=== PATIENT | female | born 1970 | race Caucasian/White ===

== ENCOUNTER → 2017-01-21 | Outpatient (CLI) | payer BC ==
--- NOTE | 2017-01-22 15:28 | MAMMOGRAPHY REPORT ---
BILATERAL DIGITAL SCREENING MAMMOGRAM TOMOSYNTHESIS WITH CAD: 01/21/2017 CLINICAL HISTORY: Routine screening. Patient has no complaints. TECHNIQUE: Breast tomosynthesis in addition to standard 2D mammography was performed. Current study was also evaluated with a Computer Aided Detection (CAD) system. COMPARISON: Comparison is made to exams dated: 02/03/2016 ultrasound, 01/19/2016 mammogram, 01/17/2015 mammogram, 01/15/2014 mammogram, 01/14/2013 mammogram, and 01/14/2012 mammogram - [facility]. BREAST COMPOSITION: There are scattered areas of fibroglandular density in both breasts. FINDINGS: There are multiple bilateral circumscribed masses scattered throughout the breasts. The previously observed mass in the upper outer quadrant of the right breast has decreased in size jose red to the prior exam. This was previously documented to represent a simple cyst on ultrasound. Ov erall these findings are most compatible with fluctuating cysts and benign fibrocystic changes. No suspicious spiculated or irregular mass, focal area of architectural distortion or suspicious calcif ications are seen. IMPRESSION: ACR BI-RADS CATEGORY 1: NEGATIVE There is no mammographic evidence of malignancy. A 1 year screening mammogram is recommended. The p atient will receive written notification of the results. Approximately 10% of breast cancers are not detected with mammography. A negative mammographic repor t should not delay biopsy if a clinically suggestive mass is present. Erika Dueñas M.D. ay/:01/21/2017 21:28:31 Certified Composites Technician: Mali Mak, [facility] letter sent: Normal 1/2 BI-RADS Code: ACR BI-RADS Category 1: Negative
== END | disposition home or self-care (01) ==
LOC: C.MAMM 13:43
PROVIDERS: ATTEND Obstetrics & Gynecology
DX: Z12.31 Encounter for screening mammogram for malignant neoplasm of breast (principal)

== ENCOUNTER → 2017-08-08 | Outpatient (CLI) | payer BC ==
--- NOTE | 2017-08-08 10:34 | DIAGNOSTIC IMAGING REPORT ---
L FINGER(S) MIN 2 VIEWS CLINICAL HISTORY: LEFT THUMB INJURY trauma. Pain. COMPARISON: None. DISCUSSION: The bones and joint spaces appear intact. There is no evidence of fracture, dislocation or bony disease. There is no evidence for soft tissue swelling. IMPRESSION: Negative study. The above report was generated using voice recognition software. It may contain grammatical, syntax or spelling errors. Electronically signed by: Jayme Dyer M.D. 08/08/2017 10:32 AM Dictated Date/Time: 08/08/2017 10:32 AM
== END | disposition home or self-care (01) ==
LOC: C.RDSM 11:51
PROVIDERS: ATTEND Family Medicine
DX: S69.92XA Unspecified injury of left wrist, hand and finger(s), initial encounter (principal); X58.XXXA Exposure to other specified factors, initial encounter

== ENCOUNTER → 2018-01-23 | Outpatient (CLI) | payer BC ==
--- NOTE | 2018-01-27 07:48 | MAMMOGRAPHY REPORT ---
BILATERAL DIGITAL SCREENING MAMMOGRAM TOMOSYNTHESIS WITH CAD: 01/23/2018 CLINICAL HISTORY: Routine screening. Patient has no complaints. TECHNIQUE: Breast tomosynthesis in addition to standard 2D mammography was performed. Current study was also evaluated with a Computer Aided Detection (CAD) system. COMPARISON: Comparison is made to exams dated: 01/21/2017 mammogram, 02/03/2016 ultrasound, 01/19/2016 m ammogram, 01/17/2015 mammogram, 01/15/2014 mammogram, and 01/14/2013 mammogram - [facility]. BREAST COMPOSITION: There are scattered areas of fibroglandular density in both breasts. FINDINGS: There is a partially circumscribed and partially obscured 11 mm mass seen within the right upper outer quadrant posteriorly, which may represent a cyst although targeted ultrasound is recommen ded for further evaluation. The remainder of both breasts are not significantly changed, without suspicious masses, calcification s, or areas of architectural distortion noted. A few small circumscribed bilateral benign-appearing masses are again noted, with cysts seen on prior ultrasound exams. IMPRESSION: ACR BI-RADS CATEGORY 0: INCOMPLETE EVALUATION: NEED ADDITIONAL IMAGING EVALUATION Right breast mass, for which additional imaging evaluation is recommended. The patient will be french d to schedule an appointment. Approximately 10% of breast cancers are not detected with mammography. A negative mammographic report should not delay biopsy if a clinically suggestive mass is present. Tabitha Navarrete M.D. /:01/23/2018 16:30:13 Teacher Industrial Arts: Kyle Pate M, [facility] letter sent: Addl Imaging 0 BI-RADS Code: ACR BI-RADS Category 0: Incomplete Evaluation: Need Additional Imaging Evaluation
== END | disposition home or self-care (01) ==
LOC: C.MAMM 08:30
PROVIDERS: ATTEND Obstetrics & Gynecology
DX: Z12.31 Encounter for screening mammogram for malignant neoplasm of breast (principal); N63.10 Unspecified lump in the right breast, unspecified quadrant

== ENCOUNTER → 2018-02-05 | Outpatient (CLI) | payer BC ==
--- NOTE | 2018-02-05 15:07 | MAMMOGRAPHY REPORT ---
ULTRASOUND OF BOTH BREASTS: 02/05/2018 CLINICAL HISTORY: 47-year-old woman called back from screening mammography for a partially circumscri bed and obscured 11 mm mass in the right upper outer quadrant posteriorly. During this diagnostic ev aluation, the patient also reported a single episode of greenish nipple discharge with squeezing. COMPARISON: Comparison is made to exams dated: 01/23/2018 mammogram, 01/21/2017 mammogram, 02/03/2016 ul trasound, 01/19/2016 mammogram, 01/17/2015 mammogram, and 01/15/2014 mammogram - [facility]. FINDINGS: Targeted ultrasound was performed in the 8:00 to 10:00 axes of the right breast in the area of partially circumscribed and obscured 11 mm breast mass seen mammographically. In the 9:00 axis, 10 cm from the nipple, there is a morphologically normal intramammary lymph node measuring approximat ibeth 7 mm. In the 9:00 axis, 7 cm from the nipple, there is an oval circumscribed parallel anechoic b enign cyst with posterior acoustic enhancement, measuring 9.0 x 6.0 x 7.7 mm. This is thought to cor relate with the mammographic mass and differences in size are likely technical due to measuring techn ique. No further workup is needed at this time. Additional sonographic evaluation was performed in the periareolar and retroareolar right breast to a ssess for the greenish nipple discharge and there is no evidence of focal duct ectasia. No intraduct al mass is seen. Overall, no suspicious solid or cystic mass identified. IMPRESSION: ACR BI-RADS CATEGORY 2: BENIGN 1. The partially circumscribed and obscured mammographic mass in the 9:00 posterior right breast cor responds to a benign anechoic simple cyst on ultrasound. No further workup is needed at this time. 2. The patient reported a single episode of greenish nipple discharge from the right breast after sq ueezing. No sonographic abnormality, intraductal mass or suspicious finding is seen on targeted ultr asound in the periareolar breast. Continued clinical monitoring is recommended and if this should oc cur spontaneously, additional workup with a breast MRI and/or surgical consultation may be needed. Erika Dueñas M.D. ay/:02/05/2018 13:40:10 Americanization Teacher: Dr. Erika Dueñas, [facility] letter sent: Normal /2 BI-RADS Code: ACR BI-RADS Category 2: Benign
== END | disposition home or self-care (01) ==
LOC: C.MAMM 12:49
PROVIDERS: ATTEND Family Medicine
DX: N63.10 Unspecified lump in the right breast, unspecified quadrant (principal); N64.52 Nipple discharge

== ENCOUNTER 2022-10-19 05:34 | Observation (INO) ==
--- NOTE | 2022-10-15 09:30 | Anesthesiology Consultation ---
Date of Service October 15, 2022 Assessment & Plan (1) Encounter for pre-operative examination: - COVID screening: Per assessment on 10/09: No known COVID-19 positive contacts or current COVID-19 related symptoms. Travel screen negative. Patient vaccinated. At surgeon discretion if preop Covid testing being done. - Check test AM DOS Chart Review Chart Review: Acceptable Risk for Surgery and Patient NOT seen in Pre Admission Testing History Surgery Operation Date: 10/19/22 08:20 Proposed Procedures p Total Laparoscopic Hysterectomy, Bilateral Salpingectomy and Cystoscopy, Possible Laparotomy - Jesse Lester MD Height/Weight Height: 5 ft 4 in Weight: 90.718 kg Allergies Allergy/AdvReac Type Severity Reaction Status Date / Time No Known Allergies Allergy Unknown Verified 10/09/22 11:31 Medications Home Medications Medication Instructions Recorded Confirmed Last Taken bupropion HCl 150 mg 24 hr tablet, 150 mg PO QAM 06/06/21 10/09/22 Unknown extended release escitalopram oxalate 20 mg tablet 20 mg PO QAM 06/06/21 10/09/22 Unknown levothyroxine 75 mcg tablet 75 mcg PO QAM 06/06/21 10/09/22 Unknown Past Medical History Medical History Abnormal uterine bleeding (AUB) Anxiety and depression History of DVT (deep vein thrombosis) LLE (1+ years ago), possibly r/t OCP, treated with AC Hypothyroidism Scoliosis Sleep apnea CPAP Past Family History Family History Other No family history of adverse response to anesthesia Past Surgical History Surgical History History of adenoidectomy History of arthroscopy of left knee History of x 2 History of colonoscopy History of D&C History of tonsillectomy History of wisdom tooth extraction Social History Smoking Status: Never smoker Do You Dip or Chew Tobacco: No Hx Alcohol Use: Yes alcohol intake frequency: other Alcohol Intake Frequency Comment: once per month Hx Substance Use: No substance use type: does not use Testing Laboratory Results 10/11/22 WBC 138 H/H 38.5 PLATELETS 100 SODIUM 138 POTASSIUM 4.8 CHLORIDE 104 CO2 26.0 BUN 13 CREATININE 0.8 GLUCOSE 100 TSH 1.88
[2022-10-19] MEDS ORDERED: ceFAZolin 2000MG 2,000 MG/15 ML SYR IV SCH (06:00)
[2022-10-19] MEDS ORDERED: LR 15ML/HR IV SCH (06:00)
[2022-10-19] MEDS ORDERED: LACTATED RINGER'S 1,000 ML IV SCH (06:00)
[2022-10-19 06:22] LABS: Pregnancy Test, Serum Negative (Negative)
[2022-10-19] MEDS ORDERED: diphenhydrAMINE 50 MG/ML VIAL ONE (06:50)
[2022-10-19] MEDS ORDERED: NEOSTIGMINE METHYLSULFATE 1 MG/ML 10ML VIAL ONE (06:50)
[2022-10-19] MEDS ORDERED: DEXAMETHASONE SOD INJ 4 MG/ML VIAL ONE (06:50)
[2022-10-19] MEDS ORDERED: fentaNYL citrate 100 MCG/2 ML VIAL ONE (06:50)
[2022-10-19] MEDS ORDERED: PROPOFOL IV EMULSION 10 MG/ML 20 ML VIAL IV ONE (06:50)
[2022-10-19] MEDS ORDERED: GLYCOPYRROLATE 0.2 MG/ML VIAL ONE (06:50)
[2022-10-19] MEDS ORDERED: ROCURONIUM BROMIDE 10 MG/ML 5 ML VIAL IV ONE ×2 (06:50→08:24)
[2022-10-19] MEDS ORDERED: LIDOCAINE 2% MPF LOCAL 5 ML VIAL INFIL ONE (06:50)
[2022-10-19] MEDS ORDERED: MIDAZOLAM HCL 1 MG/ML 2ML VIAL ONE (06:50)
[2022-10-19] MEDS ORDERED: ONDANSETRON INJ 2 MG/ML 2 ML VIAL ONE (06:50)
[2022-10-19] MEDS ORDERED: METHYLENE BLUE 0.5% 10 ML VIAL ONE (06:52)
[2022-10-19] MEDS ORDERED: fentaNYL citrate 100 MCG/2 ML VIAL IV PRN (06:52)
[2022-10-19] MEDS ORDERED: ONDANSETRON INJ 2 MG/ML 2 ML VIAL IV PRN ×2 (06:52→10:36)
[2022-10-19] MEDS ORDERED: ATROPINE SULFATE 0.1 MG/ML 10ML SYR IV PRN (06:52)
[2022-10-19] MEDS ORDERED: HYDROmorphone INJ 1 MG/ML SYRINGE IV PRN (06:52)
[2022-10-19] MEDS ORDERED: ePHEDrine sulfate 50 MG/ML AMP IV PRN (06:52)
[2022-10-19] MEDS ORDERED: PROMETHAZINE HCL 6.25 MG in SODIUM CHLORIDE 0.9% 50 ML IV PRN (06:52)
[2022-10-19] MEDS ORDERED: SCOPOLAMINE 1 MG TDSY TD STA (07:02)
[2022-10-19] MEDS ORDERED: BUPIVACAINE 0.5 % 5 MG/1 ML MPF 30ML VIAL ONE (07:02)
[2022-10-19] MEDS ORDERED: SCOPOLAMINE 1 MG TDSY TD ONE (07:03)
--- NOTE | 2022-10-19 07:10 | History & Physical Bridge Note ---
Date of Service October 19, 2022 History & Physical Bridge Note I have examined the patient, reviewed the History & Physical and in the interval since the performance of the History & Physical I have noted the following changes of clinical significance: no changes noted
[2022-10-19] MEDS ORDERED: KETAMINE 50 MG/5 ML SYRINGE ONE (08:10)
[2022-10-19] MEDS ORDERED: ePHEDrine sulfate 50 MG/ML SYR ONE (08:26)
[2022-10-19] MEDS ORDERED: FLOSEAL HEMOSTATIC MATRIX 10ML TOP ONE (09:47)
[2022-10-19] MEDS ORDERED: ZOLPIDEM TARTRATE 5 MG TAB PO PRN (10:36)
[2022-10-19] MEDS ORDERED: MAGNESIUM HYDROXIDE SUSP 30 ML UDC PO PRN (10:36)
[2022-10-19] MEDS ORDERED: oxyCODONE/ACETAMINOPHEN 5mg/325mg TAB PO PRN ×2 (10:36)
[2022-10-19] MEDS ORDERED: SIMETHICONE 80 MG CHEW PO PRN (10:36)
--- NOTE | 2022-10-19 10:36 | Post Operative Brief Note ---
Immediate Post Op Note v1 Date of Surgery October 19, 2022 Pre & Post Diagnosis Operation Date: 10/19/22 07:00 Pre-Op Diagnosis: Menorrhagia, Failed Attempt Endometrial Ablation Post-Op Diagnosis: Menorrhagia, Failed Attempt Endometrial Ablation I identified the patient and participated in the time-out.: Yes Procedure Operation Date: 10/19/22 07:00 Actual Procedures p Laparoscopic Total Hysterectomy, Bilateral Salpingectomy and Cystoscopy(Not Applicable) - Jesse Lester MD Surgeon Jesse Lester MD Linux Vmware Administrator lenin baker Estimated Blood Loss 30 Findings Consistent with Post-Op Diagnosis Drains Mir Catheter (Placed by surgeon at beginning of case)
--- NOTE | 2022-10-19 14:14 | Anesthesiology Progress Note ---
Date of Service October 19, 2022 Anesthesia Post Procedure Vital Signs Vital Signs: Temp Pulse Pulse Resp BP Pulse Ox O2 Del Method 10/19/22 11:30 67 16 107/56 L 93 Nasal Cannula 10/19/22 11:20 36.7 C 73 17 104/53 L 93 Nasal Cannula 10/19/22 11:10 63 14 107/56 L 92 Nasal Cannula 10/19/22 11:00 36.8 C 69 16 116/59 L 94 Nasal Cannula 10/19/22 10:50 66 16 130/58 L 94 Oxymask 10/19/22 10:40 75 17 126/63 94 Oxymask 10/19/22 10:30 83 18 135/69 94 Oxymask 10/19/22 10:22 37.3 C 89 18 148/79 H 94 Oxymask 10/19/22 06:25 148/78 H 10/19/22 05:54 37.3 C 91 H 18 178/107 H 97 Room Air O2 Flow Rate 10/19/22 11:30 2 10/19/22 11:20 2 10/19/22 11:10 2 10/19/22 11:00 2 10/19/22 10:50 3 10/19/22 10:40 6 10/19/22 10:30 6 10/19/22 10:22 6 10/19/22 06:25 10/19/22 05:54 Transfer of Care Handoff Completed per policy Notes Mental Status: alert / awake / arousable and participated in evaluation Patient Amnestic to Procedure: Yes Nausea / Vomiting: adequately controlled Pain: adequately controlled Airway Patency, RR, SpO2: stable & adequate BP & HR: stable & adequate Hydration State: stable & adequate Anesthetic Complications: no major complications apparent and Pt Satisfied with anesthetic care
[2022-10-19] MEDS: IBUPROFEN 600 MG TAB PO PRN ×2 (17:34→21:35)
[2022-10-19] MEDS: CHECK SCOPOLAMINE PATCH PLACEMENT SCH (17:35)
[2022-10-19] MEDS: LACTATED RINGER'S 1,000 ML IV SCH ×2 (18:41→18:42)
[2022-10-19] MEDS: DOCUSATE SODIUM 100 MG CAP PO SCH (21:35)
--- NOTE | 2022-10-20 00:33 | Operative Report (OR) ---
DATE OF SURGERY: 10/19/2022 INDICATION FOR SURGERY: This is a 51-year-old with menorrhagia, status post failed endometrial ablat ion. PREOPERATIVE DIAGNOSES: Menorrhagia, failed medical therapy and endometrial ablation. POSTOPERATIVE DIAGNOSES: Menorrhagia, failed medical therapy and endometrial ablation. PROCEDURES PERFORMED: 1. Total laparoscopic hysterectomy. 2. Bilateral salpingectomy. 3. Lysis of adhesion. 4. Cystoscopy. SURGEON: Jesse Lester MD. HIGH REACH OPERATOR: HERNANDEZ Tadeo ATTESTATION FOR HIGH REACH OPERATOR: Furniture Sprayer was necessary to help with retraction and manipulation of instr uments in order to provide for safe surgery. ANESTHESIA: General. DRAINS: None. ESTIMATED BLOOD LOSS: 30 mL INTRAVENOUS FLUIDS: 1500 mL URINE OUTPUT: blue-tinged urine at the end of the procedure. The blue-tinged urine that is fr om the methylene blue, which was given to help evaluate the ureters. SPECIMEN: Uterus and cervix as well as left and right fallopian tubes. INTRAOPERATIVE COMPLICATIONS: None. PATIENT CONDITION: Stable. DISPOSITION: Postanesthesia Care Unit. ATTESTATION STATEMENT: I performed the procedure. FINDINGS: Atrophic vulva, vagina, cervix appeared grossly normal. There were no lesions in the vagi na. Laparoscopic findings showed abdomen with some adhesions. There were adhesions of the omentum t o the anterior abdominal wall from prior sections surgery. There were adhesions of the left sigmoid to the left pelvics wall. There were filmy adhesions of the small bowel to the uterosacral region. DESCRIPTION OF PROCEDURE: The patient was taken to the operating room where she was prepped and drap ed in normal sterile fashion in the dorsal lithotomy position. A timeout was called. A weighted spe culum was placed in the vagina. Mir catheter was placed. A uterine manipulator was placed on the cervix in order to help manipulate the uterus during laparoscopy and also to help with colpotomy. A size 4 Advincula manipulator was placed. Attention was paid to the abdominal part of the procedure where a supraumbilical incision was made wi th a scalpel. Veress needle was introduced into the abdomen at a 45-degree angle while tenting up th e abdomen. Intraabdominal placement is confirmed with a water-filled syringe. Water drop and suctio n test was performed. The abdomen was insufflated with 3 L of CO2 gas. The Veress needle was remove d and 5 mm trocar attached to the 5 mm scope was placed into the abdomen under direct visualization. A nonbladed trocar was used. Three more additional trocars were placed, two on the left side of the abdomen and a third on the right, the two on the left side included a 5 mm trocar as well as a 10 mm trocar, on the contralateral right 5 mm. These were all placed under direct visualizations in Trend elenburg position. The abdominal findings are as dictated above. There were adhesions of the omentu m to the abdominal wall as well as adhesions in the posterior cul-de-sac. The adhesions to abdominal wall was examined and found to have adhesions. A 5 mm LigaSure was passed through the left tr ocar and adhesions taken down with the LigaSure. The adhesions deep in the cul-de-sac appeared to be filmy and were easily freed with traction and countertraction. The general appearance of the pelvis, otherwise was unremarkable. The uterus, left and right fallopi an tubes, and ovaries were identified. The ureters, uterosacrals, and bladder as well as bowels, cec um, and appendix were also identified. The left sigmoid was attached to the left wall made visualiza tion of the left pelvis unassessable. The sigmoid was carefully freed up and moved out of the pelvis in order to better visualize the uterus and the posterior cul-de-sac. LigaSure was passed through the left accessory port. The left fallopian tube was identified and was grasped 4 cm from the cornua of the uterus with the LigaSure and transected. This was followed by op ening of the left anterior leaf of the broad ligament. The mid-section of the left fallopian tube, o varian ligament, and meso-ovarian pedicles were all transected as well. Same procedure was performed on the contralateral side on the right. Anterior broad ligament dissection was carried out to the m id-section of the vesicouterine peritoneum over the bladder using the Harmonic scalpel. Same procedu re was carried out on the contralateral side. The posterior broad ligament, peritoneum was carefully dissected also from both sides over the uterosacral arch in order to display the ureters laterally. Using traction and countertraction, the [place] retractor and irrigation probe was used to further d issect the bladder off the lower segment of the uterus. The patient had had 2 previous sect ions. The bladder pillars and pubovesical fascia was dissected as well. Harmonic scalpel was used t o obtain hemostasis when needed. A uterine manipulator was now palpable over the vaginal tissue. The right uterine pedicles were skel etonized and coagulated with LigaSure. Good hemostasis was obtained. Same procedure was performed o n the contralateral side. The cardinal ligaments were transected on both sides. Good hemostasis was obtained, colpotomy was performed using the LigaSure hook from both sides. The uterus was removed t hrough the vagina while still attached to the uterine manipulator. The bulb attached to the uterine manipulator was reinserted and insufflated in order to obtain pneumoperitoneum. With a grasper, the remaining section of the left tube and ovary were positioned anteromedially and a salpingectomy perfo rmed. This was done using the LigaSure. Same procedure was performed on the contralateral side. EndoStitch closure device was passed through the 10 mm port on the left and using the [place] graspe r for traction, the colpotomy closure was performed. Uterosacral ligaments were incorporated into th e closure in order to decrease the risk of prolapse. Lapra-Tys were used with the EndoStitch. Cystoscopy part of the procedure was now performed. A cystoscope was placed into the bladder and one can see the bubble sign present indicating a closed loop. Both ureteral orifices were seen and urin e was seen easily effluxing out of the both ureteral orifices. There are no lesions, sutures, or lac erations seen in the bladder. The cystoscope was removed. Attention was paid back to the abdominal part of the procedure. There was some concern with the sero sa of the sigmoid after the adhesions were removed. Dr. Warner, the general surgeon, was called in to evaluate the status of the sigmoid colon. Upon evaluation, he did not feel that the lacerations o n the mucosa needed to be repaired. Copious amount of irrigation was used to obtain hemostasis. The sigmoid appeared intact. All instruments were then removed from the abdomen including the trocars. The 10 mm trocar side, how ever, was closed with a Dash-Syeda. This was done now to prevent hernia from that site. The 5 mm fascia sites were not closed. The skin incision on all the trocar sites were closed. The 10 mm trocar site was closed with a 4-0 M onocryl. The rest of the skin incision sites were closed with Dermabond. All instruments were removed from the vagina and the abdomen are accounted for x2 including sponges, needles, and retractors. The patient is sent to recovery in stable condition. Job ID: [id number]
[2022-10-20] MEDS: IBUPROFEN 600 MG TAB PO PRN ×3 (01:34→11:16)
[2022-10-20 06:24] LABS: Basophils # (auto) 0.02 K/uL (0-0.2); Basophils % (auto) 0.3 %; Eosinophils # (auto) 0.02 K/uL (0-0.50); Eosinophils % (auto) 0.3 %; Hematocrit (blood only) 31.4 % (34.1-44.9); Hemoglobin 10.1 g/dl (12.0-16.0); Immature Granulocytes # (auto) 0.05 K/uL (0.00-0.02); Immature Granulocytes % (auto) 0.6 %; Lymphocytes # (auto) 1.66 K/uL (1.2-3.4); Lymphocytes % (auto) 20.8 %; Mean Corpuscular Hemoglobin 25.9 pg (25.0-34.0); Mean Corpuscular Hgb Conc 32.2 g/dL (32.0-36.0); Mean Corpuscular Volume 80.5 fL (80.0-100.0); Mean Platelet Volume 10.4 fL (9.4-12.3); Monocytes # (auto) 0.61 K/uL (0.24-0.82); Monocytes % (auto) 7.6 %; Neutrophils # (auto) 5.62 K/uL (1.4-6.5); Neutrophils % (auto) 70.4 %; Platelet Count 292 K/uL (130-400); RDW Coefficient of Variation 14.3 % (11.5-14.5); RDW Standard Deviation 41.5 fL (36.4-46.3); White Blood Count 7.98 K/ul (4.8-10.8)
[2022-10-20 06:46] LABS: Calcium 8.5 mg/dl (8.5-10.1)
[2022-10-20 06:52] LABS: BUN Creatinine Ratio 13.6 (10-20); Creatinine Clr Calc Pharmacy 95.9 ml/min; Est GFR (African American) 96.8 ml/min; Est GFR (Non-African American) 83.5 ml/min
[2022-10-20] MEDS: DOCUSATE SODIUM 100 MG CAP PO SCH (07:47)
[2022-10-20] MEDS: CHECK SCOPOLAMINE PATCH PLACEMENT SCH (07:47)
--- NOTE | 2022-10-20 10:34 | Obstetrical Progress Note ---
Date of Service October 20, 2022 Assessment & Plan (1) S/P laparoscopic hysterectomy: s/p lap hys Day #1 pt doing well d/c home with instructions Subjective Review of Systems All systems reviewed & are unremarkable except as noted in HPI & below Physical Exam Constitutional WD/WN, vitals as above Eyes PERRL, conjunctivae normal, anicteric sclerae ENMT external ear and nose normal, oropharynx normal Neck trachea midline, no thyromegaly Respiratory normal respiratory effort, lungs clear to auscultation Cardiovascular RRR, no murmur, no edema Chest (Breasts) normal inspection/palpation of breasts Gastrointestinal (Abdomen) normal bowel sounds, soft, nontender, no hepatosplenomegaly Musculoskeletal no cyanosis or clubbing, extremities motor strength 5/5 Skin + incision (Incision clean,dry and intact) Neurologic patellar DTR's 2+ bilat, sensation intact Psychiatric A+Ox3, euthymic affect Genitourinary no vaginal lesions, no adnexal mass Lymphatic no cervical or axillary lymphadenopathy Results & Data ([facility]) Vital Signs (Past 12 Hours) Vital Signs Temp Pulse Resp BP Pulse Ox O2 Del Method 10/20/22 07:54 36.7 C 66 20 122/55 L 92 Room Air 10/20/22 05:40 36.9 C 91 H 18 124/67 Room Air 10/19/22 23:50 37.3 C 75 18 121/60 Room Air
--- NOTE | 2022-10-20 11:56 | Discharge Summary (DS) ---
DATE OF ADMISSION: 10/19/2022. DATE OF DISCHARGE: 10/20/2022. CHIEF COMPLAINT AND HISTORY OF PRESENT ILLNESS: This is a 51-year-old with menorrhagia, failed endom etrial therapy. The patient underwent total laparoscopic hysterectomy with extensive lysis of adhesi ons and cystoscopy. Surgery was otherwise unremarkable. The patient met all milestones in recovery. She was observed overnight and is being discharged home today in stable condition. PAST MEDICAL HISTORY: History of abnormal uterine bleeding, anxiety, depression, history of deep vei n thrombosis, hypothyroidism, scoliosis, and sleep apnea. PAST SURGICAL HISTORY: History of two sections, D and C's, adenoidectomy, left knee, colono scopy, tonsillectomy, and dental surgeries. SOCIAL HISTORY: The patient is . Denies tobacco, drug, or alcohol use. FAMILY HISTORY: Noncontributory. ALLERGIES: No known drug allergies. REVIEW OF SYSTEMS: Negative except as dictated in the HPI. PHYSICAL EXAMINATION: VITAL SIGNS: This morning, blood pressure is 132/55, pulse of 66, respiration is 20, temperature is 36.7. HEART: S1 and S2, regular rhythm and rate. LUNGS: Clear to auscultation bilaterally. ABDOMEN: Nontender, nondistended. Incision clean, dry and intact. EXTREMITIES: No cyanosis, clubbing or edema. LABORATORY DATA: Hemoglobin 10.11, hematocrit 31.4, platelets 292. CONDITION ON DISCHARGE: Stable. OPERATIONS: Total laparoscopic hysterectomy and cystoscopy. DISCHARGE DIAGNOSIS: Postop. PLAN ON DISCHARGE: The patient is discharged home with instructions regarding activity, diet, follow up appointment, and medications. Job ID: [id number]
== END 2022-10-20 12:13 | disposition home or self-care (01) ==
LOC: ASU 05:34 → 4E1 05:34
DX: Z79.899 Other long term (current) drug therapy; N92.0 Excessive and frequent menstruation with regular cycle; E66.9 Obesity, unspecified; Z68.39 Body mass index [BMI] 39.0-39.9, adult